=== PATIENT | male | born 1950 | race Caucasian/White ===

== ENCOUNTER 2017-10-01 10:38 | Inpatient (IN) | payer OTHER ==
[~2017-10-01 10:38] MED LIST: TRANEXAMIC ACID 1,000 MG in DEXTROSE 5% 100 ML IVPB
[2017-10-01] MEDS: traMADol 50 MG TAB PO (12:02)
[2017-10-01] MEDS: VANCOMYCIN 1 GM (PMX) 250 ML IVPB (12:02)
[2017-10-01] MEDS: DEXAMETHASONE 1 MG TAB PO (12:02)
[2017-10-01] MEDS ORDERED: DIPHENHYDRAMINE 50 MG INJ (12:37)
[2017-10-01] MEDS: DIPHENHYDRAMINE 50 MG INJ IV (12:45)
[2017-10-01] MEDS ORDERED: TOBRAMYCIN 1.2 GM POWDER (13:06)
[2017-10-01] MEDS ORDERED: ACETAMINOPHEN 500 MG TAB PO ×2 (13:30→16:00)
[2017-10-01] MEDS ORDERED: OXYCODONE/ACETAMINOPHEN (5/325) TAB PO ×4 (13:30→16:00)
[2017-10-01] MEDS ORDERED: ONDANSETRON 4 MG INJ IV ×3 (13:30→16:00)
[2017-10-01] MEDS ORDERED: ZOLPIDEM 5 MG TAB PO ×2 (13:30→16:00)
[2017-10-01] MEDS ORDERED: BUPIVACAINE 0.5%/EPI (SDV) 30 ML INJ INJ (13:30)
[2017-10-01] MEDS ORDERED: morphine 2 MG INJ IV ×4 (13:30→16:00)
[2017-10-01] MEDS ORDERED: DIPHENHYDRAMINE 50 MG INJ IV ×3 (13:30→16:00)
[2017-10-01] MEDS ORDERED: MAGNESIUM HYDROXIDE 30ML CUP PO ×2 (13:30→16:00)
[2017-10-01] MEDS ORDERED: MIDAZOLAM 1 MG/ML 2 ML INJ (13:53)
[2017-10-01] MEDS ORDERED: METOCLOPRAMIDE 10 MG INJ (13:54)
[2017-10-01] MEDS ORDERED: ROPIVACAINE 0.2% 20 ML VIAL (13:54)
[2017-10-01] MEDS ORDERED: CEFAZOLIN 1 GM INJ (14:12)
[2017-10-01] MEDS ORDERED: ONDANSETRON 4 MG INJ (14:13)
[2017-10-01] MEDS ORDERED: ACETAMINOPHEN 1000MG/100ML IV 100 ML (14:16)
[2017-10-01] MEDS: POLYMYXIN/BACITRACIN 1L IRRIG IRR (14:25)
[2017-10-01] MEDS: TRANEXAMIC ACID 1,000 MG in DEXTROSE 5% 100 ML IV ×2 (14:25→16:27)
[2017-10-01] MEDS ORDERED: hydrALAzine 20 MG INJ IV (14:30)
[2017-10-01] MEDS ORDERED: LABETALOL HCL 20MG INJ IV (14:30)
[2017-10-01] MEDS ORDERED: MEPERIDINE 25 MG INJ IV (14:30)
[2017-10-01] MEDS ORDERED: HYDROmorphONE (0.2 MG/ML) 10ML SYG IV ×3 (14:30)
[2017-10-01] MEDS: CA CHLORIDE 10% 10 ML SYRINGE (14:40)
[2017-10-01] MEDS: THROMBIN 5000 UNIT VIAL (14:40)
[2017-10-01] MEDS: BUPIVACAINE 0.5%/EPI (SDV) 30 ML INJ INJ (15:26)
[2017-10-01] MEDS: BUPIVACAINE 0.5% (SDV) 30 ML, morphine SULFATE (PF) 8 MG, EPINEPHrine 0.3 MG, KETOROLAC... IRR (15:26)
[2017-10-01] MEDS ORDERED: KETOROLAC 30 MG INJ (15:29)
[2017-10-01] MEDS ORDERED: KETOROLAC 15 MG INJ IV (16:00)
[2017-10-01] MEDS: CEFAZOLIN 1 GM/50 ML (PMX) 50 ML IVPB ×2 (16:23→23:21)
[2017-10-01] MEDS ORDERED: DEXAMETHASONE 2 MG TAB PO (18:00)
[2017-10-01] MEDS: VANCOMYCIN 500MG/NS (PMX) 100 ML IVPB (19:44)
[2017-10-01] MEDS: LACTATED RINGER'S 1,000 ML IV ×2 (19:44→23:18)
[2017-10-01] MEDS: DEXAMETHASONE 2 MG TAB PO ×2 (19:57→23:21)
[2017-10-01] MEDS ORDERED: SENNA/DOCUSATE NA (8.6MG/50MG) TAB PO (21:00)
[2017-10-01] MEDS ORDERED: GABAPENTIN 300 MG CAP PO (21:00)
[2017-10-01] MEDS: GABAPENTIN 300 MG CAP PO (21:13)
[2017-10-01] MEDS: SENNA/DOCUSATE NA (8.6MG/50MG) TAB PO (21:13)
[2017-10-01] MEDS: clonAZEPAM 0.5 MG TAB PO (21:13)
[2017-10-01] MEDS: TAMSULOSIN (SR) 0.4 MG CAP PO (21:13)
[2017-10-02] MEDS: LACTATED RINGER'S 1,000 ML IV (03:00)
[2017-10-02] MEDS: DEXAMETHASONE 2 MG TAB PO ×2 (06:16→12:00)
[2017-10-02] MEDS: ASPIRIN 81 MG TAB PO (08:24)
[2017-10-02] MEDS: SENNA/DOCUSATE NA (8.6MG/50MG) TAB PO (08:25)
[2017-10-02] MEDS: CEFAZOLIN 1 GM/50 ML (PMX) 50 ML IVPB (08:25)
== END 2017-10-02 12:20 | disposition home or self-care (01) | DRG 483 ==
LOC: REC 10:38 → MS1 17:10
PROC: 0RRK0J6 Replacement of Left Shoulder Joint with Synthetic Substitute, Humeral Surface, Open Approach (ICD-10-PCS; principal; 2017-10-01 13:53)
PROC: 0LS40ZZ Reposition Left Upper Arm Tendon, Open Approach (ICD-10-PCS; 2017-10-01 13:53)
DX: M13.812 Other specified arthritis, left shoulder (principal); M24.012 Loose body in left shoulder
CPT/HCPCS: 72170; 73030; 86999; 97165; 97535

== ENCOUNTER 2019-03-14 09:32 | Inpatient (IN) | payer OTHER ==
[2019-03-14] MEDS: LACTATED RINGER'S 1,000 ML IV (10:25)
[2019-03-14] MEDS ORDERED: OXYCODONE/ACETAMINOPHEN (5/325) TAB PO (12:00)
[2019-03-14] MEDS ORDERED: FENTAnyl 50 MCG/ML VIAL IV ×3 (12:00)
[2019-03-14] MEDS ORDERED: DIPHENHYDRAMINE 50 MG INJ IV ×2 (12:00→15:30)
[2019-03-14] MEDS ORDERED: ONDANSETRON 4 MG INJ IV (12:00)
[2019-03-14] MEDS ORDERED: MEPERIDINE 25 MG INJ IV (12:00)
[2019-03-14] MEDS ORDERED: PROCHLORPERAZINE 10 MG INJ IV (12:00)
[2019-03-14] MEDS ORDERED: HYDROmorphONE 1 MG/5 ML IV SYRINGE IV ×3 (12:00)
[2019-03-14] MEDS ORDERED: CLINDAMYCIN 600 MG/D5W (PMX) 50 ML IVPB ×2 (12:30→15:30)
[2019-03-14] MEDS ORDERED: SUCCINYLCHOLINE CHLORIDE 100 MG/5 ML SYG IV (12:33)
[2019-03-14] MEDS ORDERED: LIDOCAINE 2% (SDV) 5 ML INJ (12:33)
[2019-03-14] MEDS ORDERED: PROPOFOL 20 ML (12:33)
[2019-03-14] MEDS ORDERED: ROCURONIUM 50 MG INJ (12:33)
[2019-03-14] MEDS ORDERED: MIDAZOLAM 1 MG/ML 2 ML INJ (12:34)
[2019-03-14] MEDS ORDERED: LACTATED RINGER'S 1,000 ML IV (13:00)
[2019-03-14] MEDS ORDERED: CLINDAMYCIN 900 MG (PMX) 50 ML IVPB (13:00)
[2019-03-14] MEDS: CA CHLORIDE 10% 10 ML SYRINGE (13:56)
[2019-03-14] MEDS: BUPIVACAINE 0.5%/EPI (SDV) 30 ML INJ (13:56)
[2019-03-14] MEDS: THROMBIN 5000 UNIT (RECOTHROM) VIAL ×2 (13:57→14:50)
[2019-03-14] MEDS: POLYMYXIN/BACITRACIN 1L IRRIG (13:57)
[2019-03-14] MEDS: HEPARIN 1000 UNITS/ML 10 ML INJ (13:57)
[2019-03-14] MEDS ORDERED: SUGAMMADEX SODIUM 200 MG/2 ML VIAL IV (14:19)
[2019-03-14] MEDS ORDERED: HYDROmorphONE 2 MG/ML SYG (14:30)
[2019-03-14] MEDS ORDERED: NALOXONE (0.4 MG/ML) INJ IV (15:30)
[2019-03-14] MEDS ORDERED: ACETAMINOPHEN 325 MG TAB PO (15:30)
[2019-03-14] MEDS ORDERED: DIPHENHYDRAMINE 25 MG CAP PO (15:30)
[2019-03-14] MEDS ORDERED: CYCLOBENZAPRINE 10 MG TAB PO (15:30)
[2019-03-14] MEDS: D5W-0.45 NACL + KCL 20 MEQ 1,000 ML IV (16:47)
[2019-03-14] MEDS: HYDROmorphONE 0.5 MG/0.5 ML SYG IV (17:09)
[2019-03-14] MEDS: ONDANSETRON 4 MG INJ IV ×2 (17:13→23:33)
[2019-03-14 20:02] LABS: ADD UMIC YES; UR ASCORBIC ACID NEGATIVE (NEGATIVE); UR BACTERIA FEW /HPF (NONE SEEN); UR BILIRUBIN (Dip) NEGATIVE (NEGATIVE); UR BLOOD (Dip) NEGATIVE (NEGATIVE); UR CLARITY SLIGHTLY CLOUDY (CLEAR); UR COLOR AMBER (YELLOW); UR GLUCOSE (Dip) NEGATIVE (NEGATIVE); UR KETONES (Dip) NEGATIVE (NEGATIVE); UR LEUKOCYTE ESTERASE (Dip) NEGATIVE Leu/ul (NEGATIVE); UR MUCUS MANY /HPF (NONE SEEN); UR NITRITE (Dip) NEGATIVE (NEGATIVE); UR RBC 14 /HPF (0-5); UR SPECIFIC GRAVITY (Dip) 1.023 (1.003-1.030); UR TOTAL PROTEIN (Dip) 1+ mg/dl (NEGATIVE); UR UROBILINOGEN (Dip) NEGATIVE (NEGATIVE); UR WBC 7 /HPF (0-5)
[2019-03-14] MEDS: DOCUSATE SODIUM 100 MG CAP PO (22:08)
[2019-03-14] MEDS: HYDROCODONE/APAP (10/325) TAB PO (22:08)
[2019-03-14] MEDS: TAMSULOSIN (SR) 0.4 MG CAP PO (22:08)
[2019-03-14] MEDS: DOXAZOSIN 2 MG TAB PO (22:09)
[2019-03-14] MEDS: CLINDAMYCIN 600 MG/D5W (PMX) 50 ML IVPB (22:09)
[2019-03-15] MEDS: D5W-0.45 NACL + KCL 20 MEQ 1,000 ML IV ×2 (01:23→06:19)
[2019-03-15] MEDS: HYDROmorphONE 0.5 MG/0.5 ML SYG IV (02:34)
[2019-03-15] MEDS: CLINDAMYCIN 600 MG/D5W (PMX) 50 ML IVPB ×3 (04:47→21:49)
[2019-03-15] MEDS: CEPASTAT LOZENGE MT (04:47)
[2019-03-15 05:12] LABS: ADD MAN DIFF? NO
[2019-03-15 05:15] LABS: BASOPHILS % 0.2 % (0.0-2.0); EOSINOPHILS % 0.3 % (0.0-7.0); HEMATOCRIT 41.7 % (42.0-52.0); HEMOGLOBIN 13.7 g/dl (14.0-18.0); LYMPHOCYTES # 0.7 10^3/ul (0.8-2.9); LYMPHOCYTES % 7.5 % (15.0-51.0); MEAN CORPUSCULAR HEMOGLOBIN 29.7 pg (29.0-33.0); MEAN CORPUSCULAR HGB CONC 32.9 g/dl (32.0-37.0); MEAN CORPUSCULAR VOLUME 90.5 fl (82.0-101.0); MEAN PLATELET VOLUME 11.1 fl (7.4-10.4); MONOCYTE # 0.7 10^3/ul (0.3-0.9); MONOCYTES % 7.6 % (0.0-11.0); NEUTROPHIL # 7.5 10^3/ul (1.6-7.5); NEUTROPHILS % 84.2 % (39.0-77.0); PLATELET COUNT 137 10^3/UL (140-415); POSITIVE DIFF @See below; RED BLOOD COUNT 4.61 10^6/ul (4.70-6.10); RED CELL DISTRIBUTION WIDTH 12.7 % (11.5-14.5)
[2019-03-15 05:15] LABS: WHITE BLOOD COUNT 8.9 10^3/ul (4.8-10.8)
[2019-03-15 05:41] LABS: ANION GAP 4 (5-13); BLOOD UREA NITROGEN 13 mg/dl (7-20); CALCIUM 8.3 mg/dl (8.4-10.2); CARBON DIOXIDE 26 mmol/L (21-31); CHLORIDE 104 mmol/L (97-110); CREATININE 0.74 mg/dl (0.61-1.24); Estimated GFR > 60 mL/min (>60); GLUCOSE 138 mg/dl (70-220); MAGNESIUM 1.9 mg/dl (1.7-2.5); POTASSIUM 4.1 mmol/L (3.5-5.1); SODIUM 134 mmol/L (135-144)
[2019-03-15] MEDS: HYDROCODONE/APAP (10/325) TAB PO ×2 (06:20→14:38)
[2019-03-15] MEDS: ONDANSETRON 4 MG INJ IV (06:20)
[2019-03-15] MEDS: DOCUSATE SODIUM 100 MG CAP PO ×2 (09:30→21:46)
[2019-03-15] MEDS: SOD CHLORIDE 0.9% 1,000 ML IV ×2 (09:31→21:59)
[2019-03-15] MEDS: LACTATED RINGER'S 1,000 ML IV (12:00)
[2019-03-15] MEDS: TAMSULOSIN (SR) 0.4 MG CAP PO ×2 (12:13→21:45)
[2019-03-15] MEDS: DOXAZOSIN 2 MG TAB PO (21:49)
[2019-03-16 05:18] LABS: ADD MAN DIFF? NO
[2019-03-16 05:23] LABS: BASOPHILS % 0.3 % (0.0-2.0); EOSINOPHILS # 0.4 10^3/ul (0.0-0.5); EOSINOPHILS % 4.1 % (0.0-7.0); HEMATOCRIT 42.2 % (42.0-52.0); HEMOGLOBIN 13.8 g/dl (14.0-18.0); LYMPHOCYTES # 0.8 10^3/ul (0.8-2.9); MEAN CORPUSCULAR HEMOGLOBIN 29.7 pg (29.0-33.0); MEAN CORPUSCULAR HGB CONC 32.7 g/dl (32.0-37.0); MEAN CORPUSCULAR VOLUME 90.9 fl (82.0-101.0); MEAN PLATELET VOLUME 11.2 fl (7.4-10.4); MONOCYTE # 0.9 10^3/ul (0.3-0.9); MONOCYTES % 10.6 % (0.0-11.0); NEUTROPHIL # 6.5 10^3/ul (1.6-7.5); NEUTROPHILS % 75.8 % (39.0-77.0); PLATELET COUNT 116 10^3/UL (140-415); POSITIVE DIFF @See below; RED BLOOD COUNT 4.64 10^6/ul (4.70-6.10)
[2019-03-16 05:23] LABS: WHITE BLOOD COUNT 8.6 10^3/ul (4.8-10.8)
[2019-03-16 05:53] LABS: ANION GAP 4 (5-13); BLOOD UREA NITROGEN 13 mg/dl (7-20); CALCIUM 8.4 mg/dl (8.4-10.2); CARBON DIOXIDE 28 mmol/L (21-31); CHLORIDE 104 mmol/L (97-110); CREATININE 0.87 mg/dl (0.61-1.24); Estimated GFR > 60 mL/min (>60); GLUCOSE 111 mg/dl (70-220); MAGNESIUM 2.1 mg/dl (1.7-2.5); PHOSPHORUS 1.8 mg/dl (2.5-4.9); POTASSIUM 4.5 mmol/L (3.5-5.1); SODIUM 136 mmol/L (135-144)
[2019-03-16] MEDS: CLINDAMYCIN 600 MG/D5W (PMX) 50 ML IVPB ×2 (06:33→16:20)
[2019-03-16] MEDS: TAMSULOSIN (SR) 0.4 MG CAP PO (09:20)
[2019-03-16] MEDS: DOCUSATE SODIUM 100 MG CAP PO (09:20)
[2019-03-16] MEDS: AL HYDROX/MG HYDROX/SIMETH 30 ML CUP PO (09:22)
[2019-03-16] MEDS: HYDROCODONE/APAP (10/325) TAB PO (11:05)
[2019-03-16] MEDS: BISACODYL 10 MG SUPP PR (11:05)
[2019-03-16] MEDS: SOD CHLORIDE 0.9% 1,000 ML IV (11:10)
[2019-03-16] MEDS: LACTATED RINGER'S 1,000 ML IV (12:00)
[2019-03-16] MEDS: POTASSIUM PHOSPHATE 15 MM in SOD CHLORIDE 0.9% 250 ML IVPB (12:17)
[2019-03-16] MEDS: clonAZEPAM 0.5 MG TAB PO (16:47)
[2019-03-16] MEDS ORDERED: TAMSULOSIN (SR) 0.4 MG CAP PO ×2 (21:00)
== END 2019-03-16 19:44 | disposition home or self-care (01) | DRG 517 ==
LOC: REC 09:32 → MS1 16:39
PROC: 01NB0ZZ Release Lumbar Nerve, Open Approach (ICD-10-PCS; principal; 2019-03-14 12:00)
DX: M51.16 Intervertebral disc disorders with radiculopathy, lumbar region (principal); M48.061 Spinal stenosis, lumbar region without neurogenic claudication; R39.12 Poor urinary stream; N39.43 Post-void dribbling; R39.198 Other difficulties with micturition; R39.11 Hesitancy of micturition; N40.1 Benign prostatic hyperplasia with lower urinary tract symptoms; R39.14 Feeling of incomplete bladder emptying; R35.1 Nocturia; E83.39 Other disorders of phosphorus metabolism
CPT/HCPCS: 72110; 80048; 81001; 83735; 84100; 85025; 86999; 87086; 88304; 93005; 97110; 97116; 97161; 97530